=== PATIENT | male | born 1970 | race Caucasian/White ===

== ENCOUNTER 2020-10-25 07:36 | Emergency (ER) | payer OTHER ==
[2020-10-25] MEDS ORDERED: TORAdol 30 mg Injection IV ONE (08:07)
[2020-10-25] MEDS ORDERED: Zofran 4 MG/2 ML VIAL IV ONE (08:07)
[2020-10-25] MEDS ORDERED: MORPHINE SULFATE 4 MG INJ IV ONE (08:07)
[2020-10-25] MEDS ORDERED: Zofran 4 MG/2 ML VIAL ONE (08:20)
[2020-10-25] MEDS ORDERED: TORAdol 30 mg Injection ONE (08:20)
[2020-10-25] MEDS ORDERED: MORPHINE SULFATE 4 MG INJ ONE (08:21)
--- NOTE | 2020-10-25 08:24 | ERPHSYRPT ---
- History of Present Illness Time Seen by Provider: 10/25/20 07:38 Source: patient Exam Limitations: no limitations Patient Subjective Stated Complaint: " My testicle has been swollen for a couple days and has been hurting really bad " Triage Nursing Assessment: Pt presents to ER ambulatory and placed in ER room 9. Pt is alert and oriented x 3. Skin pale, warm, and dry. Complains of swollen right testicle since Friday. States pain was so bad on Friday that he could not hardly move. Swelling and pain has still not gone away therefore he came to ER today. Right testicle does appear red, swollen, and tender to touch. Noted small amount of redness to head of penis. Pt states he is sexually active with one partner, denies any known STIs from either him or his partner. He does state he has history of kidney stones and UTIs. Pt denies abdominal pain, n/v/d. Pt states he broke out in a cold sweat as if he was going to pass out because of th e pain. Pt is able to uriate with a small amount of difficulty, unsteady stream. Pt urine is yellow and clear. Physician History: 49 years old male with history of multiple kidney stones, UTIs presented in the ER with chief complaint of right testicular pain and swelling sudden onset 4 days ago with progressive worsening, moderate to severe sharp shooting pain in the right testicle, aggravated with coughing movements and palpation and no significant relieving factors. Reports mild dysuria and some difficulty urination but denies any abdominal/flank pain. No fever or chills reported. Denies any history of multiple sexual partners or STDs in the past. Timing/Duration: day(s) (4), gradual onset, worse Activites at Onset: rest Quality: sharpness Onset Location: right testicle Pain Radiation: none Severity of Pain-Max: severe Severity of Pain-Current: severe Modifying Factors: Worsens With: coughing, movement, palpation, urinating, position, walking Associated Symptoms: dysuria, swelling, No abdominal pain, No fever, No chills, No urinary frequency, No loss of bladder control, No lower back pain Sexual intercourse history: single partner Allergies/Adverse Reactions: No Known Drug Allergies Allergy (Verified 10/25/20 08:19) Hx Tetanus, Diphtheria Vaccination/Date Given: No Hx Influenza Vaccination/Date Given: No Hx Pneumococcal Vaccination/Date Given: No Immunizations Up to Date: No Travel Risk - International Travel Have you traveled outside of the country in past 3 weeks: No - Coronavirus Screening Are you exhibiting any of the following symptoms?: No Close contact with a COVID-19 positive Pt in past 14-21 Days: No - Vaccine Status Have you recieved a Covid-19 vaccination: No - Past Medical History Pertinent Past Medical History: Yes Other Medical History: kidney stones, uti - Past Surgical History Past Surgical History: No - Social History Smoking Status: Never smoker Exposure to second hand smoke: No Drug Use: none Patient Lives Alone: No - Review of Systems Constitutional: No Symptoms Eyes: No Symptoms Ears, Nose, & Throat: No Symptoms Respiratory: No Symptoms Cardiac: No Symptoms Abdominal/Gastrointestinal: No Symptoms Genitourinary Symptoms: Dysuria, Testicle Pain, No Penile Discharge Musculoskeletal: No Symptoms Skin: No Symptoms Neurological: No Symptoms Psychological: No Symptoms Endocrine: No Symptoms Hematologic/Lymphatic: No Symptoms Immunological/Allergic: No Symptoms - Nursing Vital Signs Nursing Vital Signs: Initial Vital Signs Pulse Rate 69 10/25/20 08:08 Respiratory Rate 18 10/25/20 08:08 Blood Pressure 124/78 10/25/20 08:08 O2 Sat by Pulse Oximetry 99 10/25/20 08:08 Pain Scale Pain Intensity 8 - Physical Exam General Appearance: no apparent distress, alert Eye Exam: eyes nml inspection Ears, Nose, Throat Exam: pharynx normal Neck Exam: normal inspection, supple, full range of motion Respiratory Exam: normal breath sounds, lungs clear Cardiovascular Exam: regular rate/rhythm, normal heart sounds Gastrointestinal/Abdomen Exam: soft, normal bowel sounds, No tenderness, No distention, No guarding Male Genital Exam: no hernia, epididymal tenderness (Right), scrotum tenderness (R), testicular tenderness (R), circumcised, inguinal lymphadenopathy, scrotal swellling, No inguinal tenderness, No urethral discharge, No herpes-like lesion(s) Back Exam: normal inspection Extremity Exam: normal inspection, normal range of motion Neurologic Exam: alert, oriented x 3, cooperative Skin Exam: normal color SpO2 Interpretation: normal SpO2: 99 O2 Delivery: Room Air Ordered Tests: Active Orders 24 hr Category Date Time Status TESTICLE [US] Stat Exams 10/25/20 08:09 Completed CBC W DIFF Stat Lab 10/25/20 08:29 Completed CMP Stat Lab 10/25/20 08:29 Completed Manual Differential NC Stat Lab 10/25/20 08:29 Completed UA W/RFX UR CULTURE Stat Lab 10/25/20 08:18 Completed Medication Summary Generic Name Dose Route Start Last Admin Trade Name Rich PRN Reason Stop Dose Admin Levofloxacin/Dextrose 750 mg in 150 mls @ 100 mls/hr 10/25/20 09:55 10/25/20 09:58 Levofloxacin 750mg/150ml D5w IV 10/25/20 11:24 100 ml/hr STAT STA 100 mls/hr Administration Discontinued Medications Generic Name Dose Route Start Last Admin Trade Name Rich PRN Reason Stop Dose Admin Levofloxacin/Dextrose Confirm 10/25/20 09:57 Levofloxacin 750mg/150ml D5w Administered 10/25/20 09:58 Dose 750 mg in 150 mls @ ud IV .STK-MED ONE Ketorolac Tromethamine 30 mg 10/25/20 08:07 10/25/20 08:21 Toradol 30 Mg Injection IV 10/25/20 08:08 30 mg STAT ONE Administration Ketorolac Tromethamine Confirm 10/25/20 08:20 Toradol 30 Mg Injection Administered 10/25/20 08:21 Dose 30 mg .ROUTE .STK-MED ONE Morphine Sulfate 4 mg 10/25/20 08:07 10/25/20 08:21 Morphine Sulfate 4 Mg Inj IV 10/25/20 08:08 4 mg STAT ONE Administration Morphine Sulfate Confirm 10/25/20 08:21 Morphine Sulfate 4 Mg Inj Administered 10/25/20 08:22 Dose 4 mg .ROUTE .STK-MED ONE Ondansetron HCl 4 mg 10/25/20 08:07 10/25/20 08:21 Zofran 4 Mg/2 Ml Vial IV 10/25/20 08:08 4 mg STAT ONE Administration Ondansetron HCl Confirm 10/25/20 08:20 Zofran 4 Mg/2 Ml Vial Administered 10/25/20 08:21 Dose 4 mg .ROUTE .STK-MED ONE Lab/Rad Data: Laboratory Result Diagrams 10/25/20 08:29 10/25/20 08:29 Laboratory Results 04/07/21 04/07/21 04/07/21 Range/Units 08:29 08:29 08:18 WBC 11.5 H (4.0-10.5) K/mm3 RBC 4.97 (4.1-5.6) M/mm3 Hgb 14.4 (12.5-18.0) gm/dl Hct 45.7 (42-50) % MCV 92.0 (78-100) fl MCH 29.0 (26-32) pg MCHC 31.5 L (32-36) g/dl RDW 14.3 H (11.5-14.0) % Plt Count 694 H (150-450) K/mm3 MPV 9.4 (7.5-11.0) fl Sodium 139 (137-145) mmol/L Potassium 4.3 (3.5-5.1) mmol/L Chloride 102 (98-107) mmol/L Carbon Dioxide 26 (22-30) mmol/L Anion Gap 15.8 H (5-15) MEQ/L BUN 17 (9-20) mg/dL Creatinine 0.66 (0.66-1.25) mg/dL Estimated GFR > 60.0 ML/MIN Glucose 108 H (74-106) mg/dL Calcium 9.5 (8.4-10.2) mg/dL Total Bilirubin 0.50 (0.2-1.3) mg/dL AST 22 (17-59) U/L ALT 16 (0-50) U/L Alkaline Phosphatase 68 (38-126) U/L Serum Total Protein 7.4 (6.3-8.2) g/dL Albumin 4.1 (3.5-5.0) g/dL Urine Color YELLOW (YELLOW) Urine Appearance CLEAR (CLEAR) Urine pH 5.0 (5-6) Ur Specific [place] 1.016 (1.005-1.025) Urine Protein NEGATIVE (Negative) Urine Ketones NEGATIVE (NEGATIVE) Urine Blood NEGATIVE (0-5) Lucian/ul Urine Nitrite NEGATIVE (NEGATIVE) Urine Bilirubin NEGATIVE (NEGATIVE) Urine Urobilinogen NEGATIVE (0-1) mg/dL Ur Leukocyte Esterase SMALL (NEGATIVE) Urine WBC (Auto) 11-15 (0-5) /HPF Urine RBC (Auto) 0-2 (0-2) /HPF U Epithel Cells (Auto) NONE (FEW) /HPF Urine Bacteria (Auto) RARE (NEGATIVE) /HPF Urine Culture Reflexed NO (NO) Urine Glucose NEGATIVE (NEGATIVE) mg/dL - Progress Progress: improved, pain not gone completely, re-examined Progress Note: 10/25/20 10:23 49 years old is evaluated for testicular swelling and pain with some dysuria. Patient is given symptomatic treatment for pain. Has mildly elevated white count of 11, grossly unremarkable chemistries. Does have UTI. I have obtained ultrasound which showed epididymal orchitis and reactive hydrocele. Started on Levaquin and have him follow-up outpatient with primary care and urology for further evaluation. GC chlamydia is pending. Discussed signs symptoms of worsening needing return to ER which he seems understanding. Recommended scrotal support. Counseled pt/family regarding: lab results, diagnosis, need for follow-up, rad results - Departure Departure Disposition: Home Clinical Impression: Epididymo-orchitis, acute Condition: Stable Critical Care Time: No Referrals: DOCTOR,NO FAMILY [Primary Care Provider] - JENNA JEONG MD [ACTIVE STAFF] - (1-2 days for reevaluation) CARLITOS MICHAEL [COURTESY STAFF] - (2 to 3 days for reevaluation) Instructions: Epididymitis (DC) Additional Instructions: Take pain medications as needed. Use scrotal support. Continue with antibiotics. Follow-up with primary care and urology for reevaluation. Return to ER for worsening pain swelling or difficulty urination/if develop fever chills etc. Prescriptions: Ibuprofen 600 mg PO Q6HPRN PRN 10 Days #20 tablet PRN Reason: Pain Hydrocodone/APAP 5/325 [[place] 5/325 mg] 1 each PO Q6H PRN PRN 3 Days #10 tablet MDD 4 PRN Reason: Pain Levofloxacin [Levaquin 500 MG Tablet] 500 mg PO DAILY 13 Days #13 tablet
[2020-10-25 08:30] LABS: Hematocrit 45.7 % (42-50); Hemoglobin 14.4 gm/dl (12.5-18.0); Mean Corpuscular Hgb Concent. 31.5 g/dl (32-36); Mean Platelet Volume 9.4 fl (7.5-11.0); Platelet Count 694 K/mm3 (150-450); Red Blood Count 4.97 M/mm3 (4.1-5.6); Red Cell Distribution Width 14.3 % (11.5-14.0); White Blood Count 11.5 K/mm3 (4.0-10.5)
[2020-10-25 08:44] LABS: Appearance CLEAR (CLEAR); Bacteria RARE /HPF (NEGATIVE); Bilirubin NEGATIVE (NEGATIVE); Blood NEGATIVE Ery/ul (0-5); Glucose NEGATIVE (NEGATIVE); Ketones NEGATIVE (NEGATIVE); Leukocyte Esterase SMALL (NEGATIVE); Nitrite NEGATIVE (NEGATIVE); Protein,Urine Dip NEGATIVE (Negative); RBC 0-2 /HPF (0-2); Specific Gravity 1.016 (1.005-1.025); Urobilinogen NEGATIVE mg/dL (0-1)
[2020-10-25 08:59] LABS: ALBUMIN 4.1 g/dL (3.5-5.0); ALKALINE PHOSPHATASE 68 U/L (38-126); ANION GAP 15.8 MEQ/L (5-15); BLOOD UREA NITROGEN 17 mg/dL (9-20); CHLORIDE 102 mmol/L (98-107); Calcium 9.5 mg/dL (8.4-10.2); Carbon Dioxide 26 mmol/L (22-30); Creatinine 1 0.66 mg/dL (0.66-1.25); EST GLOMERULAR FILTRATION RATE > 60.0 ML/MIN; Glucose 108 mg/dL (74-106); Potassium 4.3 mmol/L (3.5-5.1); SGOT/AST 22 U/L (17-59); SGPT/ALT 16 U/L (0-50); SODIUM 139 mmol/L (137-145); Total Protein 7.4 g/dL (6.3-8.2)
--- NOTE | 2020-10-25 09:06 | XRAY ---
Indication: Right testicle pain. Two-dimensional sonogram of the testicles performed. Comparison: None Both testicles are homogeneous in echogenicity. Right testicle measures 4.4 x 2.8 x 2.6 cm and the left measures 3.6 x 2.9 x 3.1 cm. Both testicles demonstrate hyperemic color Doppler flow favoring orchitis. Also both epididymides are enlarged with hyperemic color Doppler flow favoring epididymitis. Moderate bilateral hydroceles presumed reactive. Impression: Sonographic features as detailed favoring bilateral epididymoorchitis with bilateral reactive hydroceles.
[2020-10-25] MEDS ORDERED: LEVOFLOXACIN 750MG/150ML D5W 750 MG/150 ML BAG IV STA (09:55)
[2020-10-25] MEDS ORDERED: LEVOFLOXACIN 750MG/150ML D5W 750 MG/150 ML BAG IV ONE (09:57)
[2020-10-25 10:00] LABS: CHLAMYDIA DNA NOT DETECTED (NEGATIVE); GC DNA Probe NOT DETECTED (NEGATIVE)
[2020-10-25 10:59] VITALS: PULSE 64
[2020-10-25 11:09] VITALS: BP 99/59; O2SAT 99
[2020-10-25 11:12] LABS: BAND 1 % (0.0-2.0); Eosinophil 1 % (0.00-3.0); Lymphocytes 20 % (24-44); Monocyte 6 % (0.0-12.0); Neutrophils 72 % (36.-66.); Total Cells Counted 100
[2020-10-25 11:13] LABS: ANISOCYTOSIS 1+; Platelet Estimate INCREASED (NORMAL); Toxic Granulation 1+
== END 2020-10-25 11:27 | disposition home or self-care (01) ==
LOC: ED 07:36
DX: N45.3 Epididymo-orchitis (principal)
CPT/HCPCS: 36000; 36415; 76870; 80053; 81001; 85025; 86592; 87491; 87591; 96365; 96374; 96375; 99284; J1885; J1956; J2270; J2405

== ENCOUNTER 2022-03-10 10:30 | Emergency (ER) | payer OTHER ==
[2022-03-10] MEDS ORDERED: TORAdol 30 mg Injection IM ONE (11:47)
--- NOTE | 2022-03-10 11:47 | ERPHSYRPT ---
- History of Present Illness Source: patient Exam Limitations: no limitations Physician History: 51 yo wm slipped on his dock 2 days ago injuring his R pretibial area. Pain is moderate and worse w weight bearing. He denies other injuries at this time. Tetanus is UTD. Method of Injury: fell Occurred: days ago (2 days ago) Quality: intermittent Severity of Pain-Max: moderate Severity of Pain-Current: mild Lower Extremities Pain: leg: right Modifying Factors: Improves With: movement Associated Symptoms: No unable to bear weight Allergies/Adverse Reactions: No Known Drug Allergies Allergy (Verified 10/25/20 08:19) Hx Tetanus, Diphtheria Vaccination/Date Given: No Hx Influenza Vaccination/Date Given: No Hx Pneumococcal Vaccination/Date Given: No Travel Risk - Vaccine Status Have you recieved a Covid-19 vaccination: No - Review of Systems Constitutional: No Symptoms Eyes: No Symptoms Ears, Nose, & Throat: No Symptoms Respiratory: No Symptoms Cardiac: No Symptoms Abdominal/Gastrointestinal: No Symptoms Genitourinary Symptoms: No Symptoms Skin: No Symptoms Neurological: No Symptoms Psychological: No Symptoms Endocrine: No Symptoms Hematologic/Lymphatic: No Symptoms Immunological/Allergic: No Symptoms - Past Medical History Pertinent Past Medical History: Yes Other Medical History: kidney stones, uti - Past Surgical History Past Surgical History: No - Social History Smoking Status: Never smoker Exposure to second hand smoke: No Drug Use: none Patient Lives Alone: No Significant Family History: no pertinent family hx - Nursing Vital Signs Nursing Vital Signs: Initial Vital Signs Temperature 97.0 F 03/10/22 11:27 Pulse Rate 70 03/10/22 11:27 Respiratory Rate 18 03/10/22 11:27 Blood Pressure 155/79 03/10/22 11:27 O2 Sat by Pulse Oximetry 97 03/10/22 11:27 Pain Scale Pain Intensity 4 Hypertensive - Physical Exam General Appearance: no apparent distress Eyes, Ears, Nose, Throat Exam: normal ENT inspection, TMs normal, pharynx normal, moist mucous membranes Neck Exam: normal inspection, non-tender, supple, full range of motion, No Brudzinski, No Kernig's, No meningismus, No carotid bruit Cardiovascular/Respiratory Exam: chest non-tender, normal breath sounds, regular rate/rhythm, heart sounds normal Gastrointestinal/Abdominal Exam: non-tender, soft Back Exam: normal inspection, normal range of motion, No CVA tenderness, No vertebral tenderness Hips Exam: bilateral: non-tender, normal inspection, normal range of motion, no evidence of injury Legs Exam: right leg: pain (R pretibial area moderately TPP/several abrasions/Minimal edema/Good pedal pulse, distal sensation, and capillary return) Knees Exam: bilateral knee: non-tender, normal inspection, normal range of motion, no evidence of injury Ankle Exam: bilateral ankle: non-tender, normal inspection, normal range of motion, no evidence of injury Foot Exam: bilateral foot: non-tender, normal inspection, normal range of motion, no evidence of injury DTR - Lower Extremities Exam: knee (R): 2+, knee (L): 2+ Neuro/Tendon Exam: normal sensation, normal motor functions, normal tendon functions, responds to pain Mental Status Exam: alert, oriented x 3, cooperative Skin Exam: normal color, warm, dry, No rash SpO2 Interpretation: normal SpO2: 97 O2 Delivery: Room Air - Course Nursing assessment & vital signs reviewed: Yes - Radiology Exams Lower Leg X-ray Interpretation: Teleradiologist Report (RLE neg/Old medial malleolar fx) Ordered Tests: Active Orders 24 hr Category Date Time Status LOWER LEG Stat Exams 03/10/22 11:38 Taken Medication Summary Discontinued Medications Generic Name Dose Route Start Last Admin Trade Name Rich PRN Reason Stop Dose Admin Ketorolac Tromethamine 30 mg 03/10/22 11:47 03/10/22 12:20 Ketorolac Tromethamine 30 Mg/Ml Inj IM 03/10/22 11:48 30 mg STAT ONE Administration Ketorolac Tromethamine Confirm 03/10/22 12:18 Ketorolac Tromethamine 30 Mg/Ml Inj Administered 03/10/22 12:19 Dose 30 mg .ROUTE .STK-MED ONE - Progress Progress: improved Progress Note: 03/10/22 12:54 30mg IM Toradol Counseled pt/family regarding: diagnosis, need for follow-up, rad results - Departure Departure Disposition: Home Clinical Impression: Contusion Condition: Stable Critical Care Time: No Referrals: DOCTOR,NO FAMILY [NON-STAFF PHY W/O PRIVILEGES] - Follow up/PCP as directed Instructions: Contusion (DC) Additional Instructions: Elevate leg Toradol for pain Follow up with your family MD for continued pain Prescriptions: Ketorolac Trometh 10 mg Tab [TORAdol 10 MG TABLET] 10 mg PO TID PRN #10 tablet PRN Reason: Pain
[2022-03-10] MEDS ORDERED: TORAdol 30 mg Injection ONE (12:18)
[2022-03-10 13:11] VITALS: BP 132/85; PULSE 76
[2022-03-10 14:56] VITALS: O2SAT 97
--- NOTE | 2022-03-10 19:50 | XRAY ---
Indication: Bruising following fall 2 days ago. Comparison: None none 2 view right lower leg demonstrates tiny medial malleolus tip heterotopic ossification either degenerative versus old injury. Small posterior knee fabella. No other bony, articular, or soft tissue abdomen abnormalities. Comment: Preliminary interpretation by [facility]. No critical discrepancy.
== END 2022-03-10 13:11 | disposition home or self-care (01) ==
LOC: ED 10:30
DX: S80.11XA Contusion of right lower leg, initial encounter (principal); W01.0XXA Fall on same level from slipping, tripping and stumbling without subsequent striking against object, initial encounter; M79.661 Pain in right lower leg; Z28.310 Unvaccinated for COVID-19
CPT/HCPCS: 73590; 96372; 99283; J1885